=== PATIENT | male | born 1930 | race Caucasian/White ===

== ENCOUNTER → 2017-06-04 | Outpatient (CLI) | payer MEDICARE, OTHER ==
[~2017-06-04] MED LIST: ASPIR LOW81 MG PO; CEPHALEXIN500 M1 PO; EYE DROPS; NORCO 5-325 TA1 EACH PO
[2017-06-04 11:30] LABS: BASO # 0.1 10*3/uL (0.0-0.1); BASO % 0.7 % (0.0-1.0); EOS # 1.5 10*3/uL (0.0-0.4); EOS % 14.5 % (1.0-4.0); HEMATOCRIT 50.8 % (42.0-52.0); LYMPH % 19.4 % (27.0-41.0); MEAN CELL VOLUME 90.7 fl (80.0-94.0); MEAN CORPUSCULAR HGB 30.4 pg (27.0-31.0); MEAN CORPUSCULAR HGB CONC 33.5 g/dl (33.0-37.0); MEAN PLATELET VOLUME 9.5 fl (9.6-12.3); NEUT # 5.7 10*3/uL (2.3-7.9); NEUT % 55.1 % (47.0-73.0); PLATELET COUNT AUTOMATED 276 10*3/uL (130-400); RED CELL DISTRI WIDTH 14.4 % (0-14.5); WHITE BLOOD COUNT 10.3 10*3/uL (4.8-10.8)
[2017-06-04 11:57] LABS: ALBUMIN 3.7 gm/dl (3.1-4.5); CREATININE 1.52 mg/dL (0.70-1.30); POTASSIUM 4.7 mmol/L (3.5-5.1); TOTAL PROTEIN 7.5 gm/dL (6.4-8.2)
== END | disposition home or self-care (01) ==
LOC: LAB 11:10
PROVIDERS: Urology
DX: M19.90 Unspecified osteoarthritis, unspecified site (principal); R79.89 Other specified abnormal findings of blood chemistry; Z98.890 Other specified postprocedural states

== ENCOUNTER → 2017-06-09 | Outpatient (CLI) | payer MEDICARE, OTHER | END | disposition home or self-care (01) | LOC: US 01:21 | DX: N28.1 Cyst of kidney, acquired (principal) ==